=== PATIENT | female | born 1990 | race African-American/Black ===

== ENCOUNTER 2017-09-23 15:33 | Emergency (ER) | payer SELFPAY, OTHER ==
[2017-09-23 15:56] LABS: URINE HCG POC HCG NEGATIVE (Negative)
[2017-09-23 16:44] LABS: INFLUENZA A PATIENT NEGATIVE (NEGATIVE); INFLUENZA B PATIENT NEGATIVE (NEGATIVE); OBC FLU VALID
== END 2017-09-23 17:02 | disposition home or self-care (01) ==
LOC: ER 15:33
DX: J32.9 Chronic sinusitis, unspecified (principal)
CPT/HCPCS: 81025; 87804; 87804-59; 99284

== ENCOUNTER 2018-10-19 15:13 | Emergency (ER) | payer OTHER ==
[~2018-10-19] VITALS: Ht 162.6 cm; Wt 106.1 kg
[~2018-10-19 15:13] MED LIST: AZIT250T6 PO; CEPH500C PO; METR500T PO; ONDA4TAB10 SL
[2018-10-19 15:26] VITALS: BP 134/75
--- NOTE | 2018-10-19 15:50 | PHYS DOC ---
Past Medical History Past Medical History: Anemia, Other Additional Past Medical Histor: low iron Past Surgical History: No Surgical History Alcohol Use: Occasionally Drug Use: None Adult General Chief Complaint Chief Complaint: OTHER COMPLAINTS HPI HPI Patient is a 28 year old AA female who present to the ER with complaints of wanting her Mirena removed and a swollen tender knot in her LLQ/groin for the last year. Pt denies any dysuria, increased urinary frequency, nausea, vomiting , diarrhea, back pain, fever, or hematuria. She states that the knot has gradually increased in size and at times produces sharp pain. Pt denies any redness or warmth associated with the knot. She denies any irregular vaginal discharge or bleeding. Review of Systems Review of Systems Constitutional: Denies fever or chills [] HENT: Denies nasal congestion or sore throat [] Respiratory: Denies cough or shortness of breath [] Cardiovascular: No additional information not addressed in HPI [] GI: Denies nausea, vomiting, or diarrhea; reports tender knot in LLQ/groin for one year : Denies dysuria or hematuria, see HPI [employer]: See HPI[] Musculoskeletal: Denies back pain or joint pain [] Integument: Denies rash or skin lesions [] Neurologic: Denies headache, focal weakness or sensory changes [] Allergies Allergies Allergies Coded Allergies Type Severity Reaction Last Updated Verified No Known Drug Allergies 10/19/18 No Physical Exam Physical Exam Constitutional: Well developed, well nourished, no acute distress, non-toxic appearance. [] HENT: Normocephalic, atraumatic, bilateral external ears normal, nose normal. [] Eyes: conjunctiva normal, no discharge. [] Neck: Normal range of motion, no stridor. [] Cardiovascular:Heart rate regular rhythm, no murmur [] Lungs & Thorax: Bilateral breath sounds clear to auscultation [] Abdomen: soft, no rebound tenderness, no pulsatile masses; 4 cm diameter palpable soft, moveable, mass noted in LLQ. [] Skin: Warm, dry, no erythema, no rash. [] Extremities: No cyanosis, ROM intact Neurologic: Alert and oriented X 3, normal motor function, normal sensory function, no focal deficits noted. [] Psychologic: Affect normal, judgement normal, mood normal. [] Current Patient Data Vital Signs Vital Signs Date Time Temp Pulse Resp B/P (MAP) Pulse Ox O2 Delivery O2 Flow Rate FiO2 10/19/18 15:26 98.8 98 18 134/75 (94) 98 Room Air 98.8 EKG EKG [] Radiology/Procedures Radiology/Procedures PROCEDURE: ABDOMEN LTD Indication: Knot in the left lower quadrant. TECHNIQUE: Limited ultrasound of the left lower quadrant. COMPARISON: None FINDINGS: There is an oval-shaped well-circumscribed isoechoic mass in the left lower quadrant and the ACL palpable lump measuring 6.0 x 4.4 x 1.5 cm without significant internal vascularity. This lesion is approximately 1 cm beneath the skin. IMPRESSION: Palpable abnormality in the left lower quadrant corresponds to masslike lesion as described above. This is most likely a lipoma. CT of the area of concern with IV contrast can be obtained for further evaluation.[] Course & Med Decision Making Course & Med Decision Making Pertinent Labs and Imaging studies reviewed. (See chart for details) DX: lipoma of LLQ Provided pt with contact information for Dr. Gonzalez. Instructed to return to the ER if sx worsened or pt develops a fever. Patient verbalized an understanding of home care, follow-up, and return to ED instructions and was in agreement with the plan of care. [] Dragon Disclaimer Dragon Disclaimer This electronic medical record was generated, in whole or in part, using a voice recognition dictation system. Departure Departure Impression: Primary Impression: Lipoma of abdominal wall Disposition: 01 HOME, SELF-CARE Condition: STABLE Referrals: JANINE GONZALEZ MD Patient Instructions: Lipoma Additional Instructions: Follow up with Dr. Gonzalez for further evaluation and possible surgical removal of the mass. Return to the ER if symptoms worsen. LEONARD TAYLOR APRN Oct 19, 2018 15:50
--- NOTE | 2018-10-19 16:25 | RAD ---
Indication: Knot in the left lower quadrant. TECHNIQUE: Limited ultrasound of the left lower quadrant. COMPARISON: None FINDINGS: There is an oval-shaped well-circumscribed isoechoic mass in the left lower quadrant and the ACL palpable lump measuring 6.0 x 4.4 x 1.5 cm without significant internal vascularity. This lesion is approximately 1 cm beneath the skin. IMPRESSION: Palpable abnormality in the left lower quadrant corresponds to masslike lesion as described above. This is most likely a lipoma. CT of the area of concern with IV contrast can be obtained for further evaluation. Electronically signed by: Francisco Schuler DO (10/19/2018 4:20 PM) [id number]
== END 2018-10-19 16:42 | disposition home or self-care (01) ==
LOC: ER 15:13
DX: D17.1 Benign lipomatous neoplasm of skin and subcutaneous tissue of trunk (principal)
CPT/HCPCS: 76705; 99284

== ENCOUNTER 2018-11-03 10:44 | Emergency (ER) | payer OTHER ==
[~2018-11-03] VITALS: Ht 162.6 cm; Wt 90.7 kg
[2018-11-03] MEDS ORDERED: IV NORMAL SALINE 1000ML BAG 1,000 ML IV SCH (10:57)
[2018-11-03] MEDS ORDERED: ASPIRIN CHEWABLE 81 MG TABLET. PO ONE (11:00)
--- NOTE | 2018-11-03 11:06 | PHYS DOC ---
Past Medical History Past Medical History: Anemia, Other Additional Past Medical Histor: low iron; hernia Past Surgical History: No Surgical History Alcohol Use: Occasionally Drug Use: None Adult General Chief Complaint Chief Complaint: CHEST PAIN HPI HPI Patient is a 28-year-old female who presents with complaint of midsternal chest pain that started earlier this morning. She describes pain as being sharp and stabbing in nature and rates pain as moderate. She states that pain is worsened when she walks. She states that nothing improves the pain. She denies any nausea , vomiting or diaphoresis. She also denies any cough. She does indicate that shortly prior to coming into the emergency room she had a sharp pain that shot up her left leg. Patient also indicates that she has pain in her lower back area. Review of Systems Review of Systems Constitutional: Denies fever or chills [] Respiratory: Denies cough or shortness of breath [] Cardiovascular: No additional information not addressed in HPI [] GI: Denies abdominal pain, nausea, vomiting or diarrhea [] Musculoskeletal: Complains of lower back pain [] Integument: Denies rash or skin lesions [] Neurologic: Denies headache, focal weakness or sensory changes [] All other systems were reviewed and found to be within normal limits, except as documented in this note. Current Medications Current Medications Current Medications Medications (Trade) Dose Ordered Sig/[facility] Start Time Stop Time Status Last Admin Dose Admin Aspirin (Children'S Aspirin) 324 mg 1X ONCE 11/03/18 11:00 11/03/18 11:04 DC 11/03/18 11:09 324 MG Sodium Chloride 1,000 ml @ 1,000 mls/hr Q1H 11/03/18 10:57 11/03/18 11:56 DC 11/03/18 11:08 1,000 MLS/HR Allergies Allergies Allergies Coded Allergies Type Severity Reaction Last Updated Verified No Known Drug Allergies 10/19/18 No Physical Exam Physical Exam Constitutional: Well developed, well nourished, no acute distress, non-toxic appearance. [] HENT: Normocephalic, atraumatic, bilateral external ears normal, oropharynx moist, no oral exudates, nose normal. [] Eyes: PERRLA, EOMI, conjunctiva normal, no discharge. [] Neck: Normal range of motion, no tenderness, supple, no stridor. [] Cardiovascular: Regular rate and rhythm. There is reproducible tenderness to palpation in the left lower sternal border. [] Lungs & Thorax: Bilateral breath sounds clear to auscultation [] Abdomen: Bowel sounds normal, soft, no tenderness. [] Skin: Warm, dry, no erythema, no rash. [] Extremities: No tenderness, no cyanosis, no clubbing, ROM intact, no edema. [] Neurologic: Alert and oriented X 3, no focal deficits noted. [] Current Patient Data Vital Signs Vital Signs Date Time Temp Pulse Resp B/P (MAP) Pulse Ox O2 Delivery O2 Flow Rate FiO2 11/03/18 10:48 98.3 84 16 126/67 (86) 100 Room Air 98.3 Lab Values Laboratory Tests Test 11/03/18 11:04 White Blood Count 4.3 x10^3/uL (4.0-11.0) Red Blood Count 4.46 x10^6/uL (3.50-5.40) Hemoglobin 12.8 g/dL (12.0-15.5) Hematocrit 40.0 % (36.0-47.0) Mean Corpuscular Volume 90 fL (79-100) Mean Corpuscular Hemoglobin 29 pg (25-35) Mean Corpuscular Hemoglobin Concent 32 g/dL (31-37) Red Cell Distribution Width 13.9 % (11.5-14.5) Platelet Count 291 x10^3/uL (140-400) Neutrophils (%) (Auto) 47 % (31-73) Lymphocytes (%) (Auto) 44 % (24-48) Monocytes (%) (Auto) 7 % (0-9) Eosinophils (%) (Auto) 2 % (0-3) Basophils (%) (Auto) 1 % (0-3) Neutrophils # (Auto) 2.0 x10^3uL (1.8-7.7) Lymphocytes # (Auto) 1.9 x10^3/uL (1.0-4.8) Monocytes # (Auto) 0.3 x10^3/uL (0.0-1.1) Eosinophils # (Auto) 0.1 x10^3/uL (0.0-0.7) Basophils # (Auto) 0.0 x10^3/uL (0.0-0.2) D-Dimer (Jane) 0.38 ug/mlFEU (0.00-0.50) Sodium Level 141 mmol/L (136-145) Potassium Level 4.2 mmol/L (3.5-5.1) Chloride Level 104 mmol/L (98-107) Carbon Dioxide Level 30 mmol/L (21-32) Anion Gap 7 (6-14) Blood Urea Nitrogen 14 mg/dL (7-20) Creatinine 0.9 mg/dL (0.6-1.0) Estimated GFR (Cockcroft-Gault) 89.6 BUN/Creatinine Ratio 16 (6-20) Glucose Level 92 mg/dL (70-99) Calcium Level 8.4 mg/dL (8.5-10.1) L Magnesium Level 1.8 mg/dL (1.8-2.4) Total Bilirubin 0.2 mg/dL (0.2-1.0) Aspartate Amino Transferase (AST) 24 U/L (15-37) Alanine Aminotransferase (ALT) 31 U/L (14-59) Alkaline Phosphatase 80 U/L (46-116) Troponin I Quantitative < 0.017 ng/mL (0.000-0.055) WA-Ykq-V-Type Natriuretic Peptide 60 pg/mL (0-124) Total Protein 7.9 g/dL (6.4-8.2) Albumin 3.6 g/dL (3.4-5.0) Albumin/Globulin Ratio 0.8 (1.0-1.7) L Laboratory Tests 11/03/18 11:04 Laboratory Tests 11/03/18 11:04 EKG EKG [] Interpretation Time: EKG demonstrates normal sinus rhythm with rate of 66. Radiology/Procedures Radiology/Procedures [] Impressions: PORTABLE CHEST 1V Clinical indications: CHEST PAIN COMPARISON: None available. Findings: No acute lung infiltrate or pleural effusion or pulmonary edema or lung mass or pneumothorax is seen. The heart size, pulmonary vasculature, mediastinum and both marcella are unremarkable. Impression: No acute radiographic abnormality is seen. Electronically signed by: Phoenix Velazquez MD (11/03/2018 11:43 AM) [id number] Course & Med Decision Making Course & Med Decision Making Pertinent Labs and Imaging studies reviewed. (See chart for details) [] Dragon Disclaimer Dragon Disclaimer This electronic medical record was generated, in whole or in part, using a voice recognition dictation system. Departure Departure Impression: Primary Impression: Costochondritis Additional Impression: Low back pain Disposition: 01 HOME, SELF-CARE Condition: STABLE Referrals: MACIEJ MERINO (PCP) Patient Instructions: Back Pain, Adult, Costochondritis Scripts Diclofenac Sodium (DICLOFENAC SODIUM) 50 Mg Tablet.dr 1 TAB PO BID PRN for PAIN, #20 TAB Prov: GISELLE CHAUDHARI Jr. DO 11/03/18 Tramadol Hcl (TRAMADOL HCL) 50 Mg Tablet 50 MG PO Q6HRS PRN for PAIN, #12 TAB Prov: GISELLE CHAUDHARI Jr. DO 11/03/18 Problem Qualifiers Additional Impression: Low back pain Chronicity: acute Back pain laterality: left Sciatica presence: without sciatica Qualified Codes: M54.5 - Low back pain GISELLE CHAUDHARI Jr. DO Nov 03, 2018 11:06
[2018-11-03 11:20] LABS: BASO % 1 % (0-3); EOS # 0.1 x10^3/uL (0.0-0.7); EOS % 2 % (0-3); HEMOGLOBIN 12.8 g/dL (12.0-15.5); LYMPH # 1.9 x10^3/uL (1.0-4.8); LYMPH % 44 % (24-48); MEAN CORPUSCULAR HEMOGLOBIN 29 pg (25-35); MEAN CORPUSCULAR HGB CONC 32 g/dL (31-37); MEAN CORPUSCULAR VOLUME 90 fL (79-100); MONO # 0.3 x10^3/uL (0.0-1.1); MONO % 7 % (0-9); NEUT % 47 % (31-73); PLATELET COUNT 291 x10^3/uL (140-400); RED BLOOD COUNT 4.46 x10^6/uL (3.50-5.40); RED CELL DISTRIBUTION WIDTH 13.9 % (11.5-14.5); WHITE BLOOD COUNT 4.3 x10^3/uL (4.0-11.0)
[2018-11-03 11:24] LABS: CALCIUM 8.4 mg/dL (8.5-10.1); CREATININE 0.9 mg/dL (0.6-1.0); GFR 89.6; POTASSIUM 4.2 mmol/L (3.5-5.1)
[2018-11-03 11:29] LABS: ALBUMIN 3.6 g/dL (3.4-5.0); ALBUMIN/GLOBULIN RATIO 0.8 (1.0-1.7); MAGNESIUM 1.8 mg/dL (1.8-2.4); TOTAL BILIRUBIN 0.2 mg/dL (0.2-1.0); TOTAL PROTEIN 7.9 g/dL (6.4-8.2)
--- NOTE | 2018-11-03 11:46 | RAD ---
PORTABLE CHEST 1V Clinical indications: CHEST PAIN COMPARISON: None available. Findings: No acute lung infiltrate or pleural effusion or pulmonary edema or lung mass or pneumothorax is seen. The heart size, pulmonary vasculature, mediastinum and both marcella are unremarkable. Impression: No acute radiographic abnormality is seen. Electronically signed by: Phoenix Velazquez MD (11/03/2018 11:43 AM) [id number]
[2018-11-03 11:53] VITALS: BP 117/78
[2018-11-03] MEDS ORDERED: DICL50TA4 PO (12:04)
[2018-11-03] MEDS ORDERED: TRAM50TA PO (12:04)
--- NOTE | 2018-11-03 12:22 | EKG ---
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
== END 2018-11-03 12:33 | disposition home or self-care (01) ==
LOC: ER 10:44
DX: M94.0 Chondrocostal junction syndrome [Tietze] (principal); M54.5 Low back pain
CPT/HCPCS: 36415; 71045; 80053; 83735; 83880; 84484; 85025; 85379; 93005; 99284; J7030